=== PATIENT | female | born 1965 | race Caucasian/White ===

== ENCOUNTER 2022-04-02 07:52 | Emergency (ER) | payer OTHER, SELFPAY ==
--- NOTE | 2022-04-02 07:53 | ECG_ITS ---
Test Date: 2022-04-02 Pat Name: Nenita Harrison Department: Room: Gender: Female [employer]aker Tractor Driver: : [id number] Requested By: Sarmad Moon Order Number: [id number] Akosua MD: Jonny Leblanc M.D. Measurements Intervals [place] Rate: 70 P: 51 WA: 180 QRS: 54 QRSD: 93 T: 48 QT: 405 QTc: 437 Interpretive Statements SINUS RHYTHM No previous ECG available for comparison Electronically Signed On 04-02-2022 23:27:09 [employer] by Jonny Leblanc M.D. [id number]
[2022-04-02 08:04] VITALS: BP 114/65; PULSE 78; RESP 18; O2SAT 97; BMI 25.0
--- NOTE | 2022-04-02 08:13 | ED_ITS ---
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 She has a history of congestive heart failure she takes blood pressure medications she recently took an extra dose of Lasix when she had noticed some increased swelling. Not had any fever sweats or chills or chest pain. Patient had a near syncopal episode MD elicited complaint: lightheadedness Onset (ago): minute(s) Timing: sudden onset Severity: moderate Description: lightheadedness, off-balance and near-syncope Context: change in body position Exacerbating factors: movement/ambulation and change in body position Relieving factors: nothing Associated symptoms: Reports nausea; Denies chest pain, chills, malaise, nasal congestion, palpitations or vomiting Associated neuro symptoms: Reports extremity weakness; Deny confusion, difficulty speaking, dysphagia, diplopia, facial numbness, facial weakness, gait changes, numbness in extremities or visual changes Review of Systems Const: Denies: fever(s), chills, body aches, change in appetite, fatigue or malaise ENMT: Denies: throat pain, ear or mastoid pain, nasal discharge or nasal congestion Card: Reports: swelling of feet/ankles (Resolved) and pre-syncope; Denies: chest pain, palpitations, irregular heart rhythm, edema, dyspnea on exertion or orthopnea Resp: Denies: dyspnea, productive cough or non-productive cough GI: Reports: nausea; Denies: abdominal pain, vomiting, hematemesis or dysphagia : Denies: flank pain, difficulty voiding, dysuria, urinary frequency or urinary urgency Skin/Breast: Denies: rash or pruritus Neuro: Reports: difficulty walking and dizziness; Denies: numbness in extremities or confusion PFS ED PFSH: Medical History (Updated 04/02/22 @ 13:02 by Sarmad Cunningham DO) Congestive heart failure Hypertension Physical Exam Const: GENERAL APPEARANCE: cooperative and comfortable ORIENTATION/CONSCIOUSNESS: Yes awake HENMT: COMMON NORMALS: normocephalic, atraumatic and hearing grossly normal bilaterally HEAD & SCALP: normocephalic and atraumatic Resp: COMMON NORMALS: normal respiratory effort, No retractions, No use of accessory muscles and clear to auscultation bilaterally AUSCULTATION: clear to auscultation bilaterally Cardio: COMMON NORMALS: regular rate, regular rhythm and No murmurs present (Cardio) RATE: regular rate RHYTHM: regular rhythm GI: COMMON NORMALS: Soft to palpation and No hepatosplenomegaly present AUSCULTATION: Yes normoactive bowel sounds PALPATION: Yes Soft to palpation, No Tenderness to palpation present (GI), No Guarding due to palpation present (GI) and Yes No hepatosplenomegaly present Extremity: COMMON NORMALS: normal to inspection, capillary refill normal, no clubbing, cyanosis or edema, no calf tenderness and no pedal edema Skin: COMMON NORMALS: no rashes or lesions noted GENERAL SKIN EXAM: no rashes or lesions noted Course Vital Signs: Vital signs: Vital Signs Pulse Rate 78 04/02/22 08:04 Respiratory Rate 18 04/02/22 08:04 Blood Pressure 125/70 04/02/22 10:39 Pulse Oximetry 97 04/02/22 08:04 Oxygen Delivery Me thod 04/02/22 08:04 MDM - Dizziness Medical Decision Making EKG enzymes unremarkable. Patient does not appear to be acute congestive heart failure orthostatics were positive she is given 500 normal saline this improved orthostatics and she did feel much better suspect she is somewhat over diuresed volume depleted in general. She seems to have improved. Cautious to give any further fluid together history of heart failure hold on Lasix follow-up with her primary care doctor off work today can return when feels better. Medical Records I reviewed the patient's medical records. Lab Data I reviewed the patient's lab results. 04/02/22 08:32 04/02/22 08:32 Radiology Impressions Chest X-Ray 04/02/22 08:14 Impression: Negative chest. Laboratory Results WBC 10.1 10^3/uL (4.0-10.0) H 04/02/22 08:32 RBC 4.26 10^6/uL (4.1-5.3) 04/02/22 08:32 Hgb 12.6 g/dL (11.5-15.3) 04/02/22 08:32 Hct 39.0 % (37.0-47.0) 04/02/22 08:32 MCV 91.5 fl (81-99) 04/02/22 08:32 MCH 29.6 pg (28.0-34.0) 04/02/22 08:32 MCHC 32.3 g/dL (30.0-36.0) 04/02/22 08:32 RDW 13.4 % (12.1-15.1) 04/02/22 08:32 Plt Count 300 10^3/cmm (130-400) 04/02/22 08:32 MPV 10.6 fL (7.4-10.4) H 04/02/22 08:32 Neut % (Auto) 64.3 % 04/02/22 08:32 Lymph % (Auto) 25.7 % 04/02/22 08:32 Ball[place] % (Auto) 7.0 % 04/02/22 08:32 Eos % (Auto) 1.7 % 04/02/22 08:32 Baso % (Auto) 1.0 % 04/02/22 08:32 Neut # (Auto) 6.48 10^3/uL (1.8-7.7) 04/02/22 08:32 Lymph # (Auto) 2.6 10^3/uL (0.8-4.8) 04/02/22 08:32 Ballard # (Auto) 0.7 10^3/uL (0.2-0.9) 04/02/22 08:32 Eos # (Auto) 0.2 10^3/uL (0.0-0.8) 04/02/22 08:32 Baso # (Auto) 0.1 10^3/uL (0.0-0.1) 04/02/22 08:32 Nucleated RBC % (auto) 0 % 04/02/22 08:32 Nucleated RBCs # 0.0 /100WBC 04/02/22 08:32 Sodium 136 mmol/L (136-145) 04/02/22 08:32 Potassium 3.7 mmol/L (3.5-5.1) 04/02/22 08:32 Chloride 101 mmol/L (98-107) 04/02/22 08:32 Carbon Dioxide 21 mmol/L (22-29) L 04/02/22 08:32 Anion Gap 17.7 (5-19) 04/02/22 08:32 BUN 11 mg/dL (6-20) 04/02/22 08:32 Creatinine 1.0 mg/dL (0.5-0.9) H 04/02/22 08:32 GFR Calculation 56.7 mL/min (90-130) L 04/02/22 08:32 Glucose 196 mg/dL (65-115) H 04/02/22 08:32 Calculated Osmolality 287 mOsm/kg (285-295) 04/02/22 08:32 Calcium 8.9 mg/dL (8.5-10.5) 04/02/22 08:32 NT-Pro-B Natriuret Pep 63 pg/mL (0-125) 04/02/22 08:32 Discharge Plan Discharge Patient Disposition: Home Clinical Impression: Orthostatic hypotension Condition: Stable Discharge Orders: Discharge ED (Routine); Ordered 04/02/22 Ordered By: Sarmad Cunningham Discharge Diet: Usual diet Discharge Activity: Increase activity as tolerated Patient Instructions: Opioid Safety, Pain Management Activity Restrictions/Additional Instructions: You are seen today for orthostatic hypotension. Your blood pressure was decreasing when you change positions particularly when you stand. After fluid bolus this has largely resolved. Recommend you follow-up with your doctor at some point in the next 1 to 2 weeks. Coding Level of Care Code ED Social Work Coordinator for Autumn Hernandez
--- NOTE | 2022-04-02 08:14 | XR_ITS ---
WS: [id number] Portable AP upright chest, 04/02/2022 Clinical Data: CHF Comparison: None. Findings: No nodules, masses or effusions are seen. The heart is normal. The pulmonary vascularity is not increased. No pneumonia or pneumothorax is seen. There is an anterior cervical disc fusion. XR/XR chest 1V portable [id number] Impression: Negative chest.
[2022-04-02 08:38] VITALS: BP 109/70; BP 124/59; BP 97/57
[2022-04-02 08:42] LABS: Basophils # 0.1 10^3/uL (0.0-0.1); Eosinophils # 0.2 10^3/uL (0.0-0.8); Eosinophils % 1.7 %; Hemoglobin 12.6 g/dL (11.5-15.3); Lymphocytes # 2.6 10^3/uL (0.8-4.8); Lymphocytes % 25.7 %; Mean Corpuscular HGB Conc 32.3 g/dL (30.0-36.0); Mean Corpuscular Hemoglobin 29.6 pg (28.0-34.0); Mean Corpuscular Volume 91.5 fl (81-99); Mean Platelet Volume 10.6 fL (7.4-10.4); Monocytes # 0.7 10^3/uL (0.2-0.9); Neutrophils # 6.48 10^3/uL (1.8-7.7); Neutrophils % 64.3 %; Nucleated Red Blood Cells % 0 %; Platelet Count 300 10^3/cmm (130-400); Red Blood Count 4.26 10^6/uL (4.1-5.3); Red Cell Distribution Width 13.4 % (12.1-15.1); White Blood Count 10.1 10^3/uL (4.0-10.0)
[2022-04-02 09:05] LABS: Anion Gap 17.7 (5-19); Blood Urea Nitrogen 11 mg/dL (6-20); Calcium 8.9 mg/dL (8.5-10.5); Carbon Dioxide 21 mmol/L (22-29); Chloride 101 mmol/L (98-107); Glomerular Filtration Rate 56.7 mL/min (90-130); Glucose 196 mg/dL (65-115); NT Pro B Type Natriuretic Pept 63 pg/mL (0-125); Osmolality Calculated 287 mOsm/kg (285-295); Potassium 3.7 mmol/L (3.5-5.1); Sodium 136 mmol/L (136-145)
[2022-04-02] MEDS: sodium chloride 0.9% 500 ML 999 ML IV (09:34)
[2022-04-02 09:56] VITALS: BP 130/72; BP 140/77; BP 150/68
[2022-04-02 10:39] VITALS: BP 125/70
== END 2022-04-02 10:40 | disposition home or self-care (01) ==
PROVIDERS: Emergency Provider Family Medicine
DX: I95.1 Orthostatic hypotension (principal); I11.0 Hypertensive heart disease with heart failure; I50.9 Heart failure, unspecified
CPT/HCPCS: 36415; 71045; 80048; 83880; 85025; 93005; 99285; J7040